=== PATIENT | female | born 1990 | race Caucasian/White ===

== ENCOUNTER 2019-07-06 15:47 | Observation (INO) | payer OTHER, SELFPAY ==
[2019-07-06 16:37] LABS: Add Urine Microscopic? NO; Appearance Urine Clear (Clear); Bilirubin Urine Negative (Negative); Blood Urine Negative (Negative); Color Urine Straw (Yellow); Glucose Urine UA Negative (Negative); Ketones Urine Negative (Negative); Leukocyte Esterase Ur Negative LEU/UL (Negative); Nitrate Urine Negative (Negative); Protein Urine Negative (Negative); Specific Grav Ur 1.014 (1.001-1.035); Urobilinogen Urine Negative mg/dL (<2.0)
[2019-07-06] MEDS: TERBUTALINE SULFATE 1 MG/ML VIAL 0.25 MG SUB-Q (16:58)
[2019-07-06 17:01] VITALS: BP 120/69; PULSE 103
[2019-07-06 17:15] VITALS: BP 121/62; PULSE 108
--- NOTE | 2019-07-06 17:39 | OBADM ---
This patient, Cristy Alvarado, admitted to the OB room OB Post 117 for observation. Patient/family oriented to hospital policies and general routines including ID bracelet, bed and alarms, visiting hours, pain management, procedures, bathroom and other care routines, personal items, smoking policy, room service/diet, and visiting hours. Patient/Family are encouraged to report perceived risks to care and to ask questions if they do not understand what they are told or what they should do.
--- NOTE | 2019-08-01 08:43 | PM.OBTRLD ---
OB - Triage/Final Diagnosis Evaluation Laboratory results: Laboratory Tests 07/06/19 16:26 Urine Color Straw Urine Appearance Clear Urine pH 6.0 Ur Specific [place] 1.014 Urine Protein Negative Urine Glucose (UA) Negative Urine Ketones Negative Ur Blood (Man) Negative Urine Nitrate Negative Urine Bilirubin Negative Urine Urobilinogen Negative Leukocyte Esterase Rfl Negative Final Diagnosis (1) Abdominal pain affecting : Code(s): O26.899 - Other specified related conditions, unspecified trimester; R10.9 - Unspecified abdominal pain Status: Acute
== END 2019-07-06 19:00 | disposition home or self-care (01) ==
PROVIDERS: Admitting Provider Obstetrics & Gynecology; Visit Provider Obstetrics & Gynecology
DX: O26.892 Other specified pregnancy related conditions, second trimester (principal); R10.9 Unspecified abdominal pain; Z3A.23 23 weeks gestation of pregnancy
CPT/HCPCS: 81003; 96372; G0378; G0379; J3105

== ENCOUNTER 2019-07-07 20:32 | Observation (INO) | payer OTHER, SELFPAY ==
[2019-07-07] VITALS (19 sets, daily range): BP systolic 118; BP diastolic 80; PULSE 87–117; O2SAT 98–100; BMI 23.8
[2019-07-07] MEDS: TERBUTALINE SULFATE 1 MG/ML VIAL 0.25 MG SUB-Q (22:18)
[2019-07-07 23:11] LABS: Fetal Fibronectin Negative
--- NOTE | 2019-08-01 08:42 | PM.OBTRLD ---
OB - Triage/Final Diagnosis Evaluation Laboratory results: Laboratory Tests 07/07/19 22:34 Fibronectin Negative Final Diagnosis (1) Abdominal pain affecting : Code(s): O26.899 - Other specified related conditions, unspecified trimester; R10.9 - Unspecified abdominal pain Status: Acute
== END 2019-07-08 00:11 | disposition home or self-care (01) ==
PROVIDERS: Admitting Provider Obstetrics & Gynecology; Visit Provider Obstetrics & Gynecology
DX: O26.892 Other specified pregnancy related conditions, second trimester (principal); Z3A.24 24 weeks gestation of pregnancy; R10.9 Unspecified abdominal pain
CPT/HCPCS: 82731; 96372; G0378; G0379; J3105

== ENCOUNTER 2019-07-20 09:45 | Outpatient (RCR) | payer OTHER, SELFPAY ==
[2019-07-20 10:52] VITALS: BP 90/55; PULSE 99
== END 2019-10-18 23:59 | disposition home or self-care (01) ==
LOC: ANHOBOP 09:45
PROVIDERS: Visit Provider Obstetrics & Gynecology
DX: O36.8120 Decreased fetal movements, second trimester, not applicable or unspecified (principal); Z3A.25 25 weeks gestation of pregnancy
CPT/HCPCS: 59025

== ENCOUNTER 2019-08-03 08:25 | Observation (INO) | payer OTHER, SELFPAY ==
--- NOTE | ~2019-08-03 | US_ITS ---
US OB limited, US OB transvaginal 08/03/2019 10:18 Indication: Vaginal spotting with Procedure: High-resolution Limited obstetrical ultrasound including transabdominal and transvaginal t echnique Comparison: No prior studies for comparison. Findings: There is a single living intrauterine in transverse presentation. heart rat e is 141 BPM. Fetus is in breech presentation. Placenta is anterior without previa. Amniotic fluid in dex is normal measuring 14.1 cm. Cervical length measures 3.75 cm without evidence for funneling. Impression: 1: Single living intrauterine in transverse presentation. 2: Normal YANELI measures 14.1 cm. 3: Cervical length is 3.75 cm. Reviewed, dictated and finalized at location B. L STUD FRAMER Impression: 1: Single living intrauterine in transverse presentation. 2: Normal YANELI measures 14.1 cm. 3: Cervical length is 3.75 cm. Impression: 1: Single living intrauterine in transverse presentation. 2: Normal YANELI measures 14.1 cm. 3: Cervical length is 3.75 cm.
[2019-08-03 08:45] VITALS: BP 121/69; PULSE 93
[2019-08-03 08:46] VITALS: BP 111/70; PULSE 99
[2019-08-03 09:00] VITALS: BP 108/67; PULSE 90
[2019-08-03 09:34] VITALS: TEMP 36.6
--- NOTE | 2019-08-03 10:41 | PM.OBTRLD ---
OB - Triage/Final Diagnosis Visit Information Date of evaluation: 08/03/19 Reason for evaluation: other (spotting) Evaluation Vital signs: Vital Signs - 24 hr 08/03/19 08:45 08/03/19 08:46 08/03/19 09:00 Pulse Rate 93 99 90 Blood Pressure 121/69 111/70 108/67
[2019-08-03] MEDS: TERBUTALINE SULFATE 1 MG/ML VIAL 0.25 MG SUB-Q (11:07)
--- NOTE | 2019-08-03 11:24 | OBADM ---
This patient, Cristy Alvarado, admitted to the OB room OB Post 116 for observation. Patient/family oriented to hospital policies and general routines including ID bracelet, bed and alarms, visiting hours, pain management, procedures, bathroom and other care routines, personal items, smoking policy, room service/diet, and visiting hours. Patient/Family are encouraged to report perceived risks to care and to ask questions if they do not understand what they are told or what they should do.
--- NOTE | 2019-08-03 12:24 | PC.NURSE ---
0915-Dr.Dalla Castro called,informed pt came in stating she had some spotting yesterday that was brown with some small clots and today when she uses the restroom she has a couple drips of brown-red blood. Nothing seen on patients vivian pad. Order received to send to US for placenta check and cervical length.
--- NOTE | 2019-08-03 12:35 | PC.NURSE ---
1055-Dr.Dalla Castro called with US results and informed pt is having very occassional contractions. One order of terbutaline received and discharge order.
--- NOTE | 2019-08-06 20:05 | PM.OBTRLD ---
OB - Triage/Final Diagnosis Visit Information Date of evaluation: 08/06/19 Reason for evaluation: threatened labor
== END 2019-08-03 12:05 | disposition home or self-care (01) ==
PROVIDERS: Admitting Provider Obstetrics & Gynecology; Visit Provider Obstetrics & Gynecology
DX: O26.852 Spotting complicating pregnancy, second trimester (principal); Z3A.27 27 weeks gestation of pregnancy
CPT/HCPCS: 76815; 76817; 96372; G0378; G0379; J3105

== ENCOUNTER 2019-08-06 17:39 | Observation (INO) | payer OTHER, SELFPAY ==
[2019-08-06] VITALS (12 sets, daily range): BP systolic 103–111; BP diastolic 64–72; PULSE 52–139; O2SAT 81–100
[2019-08-06] MEDS: TERBUTALINE SULFATE 1 MG/ML VIAL 0.25 MG SUB-Q (18:27)
--- NOTE | 2019-08-06 19:00 | PC.NURSE ---
pt states that pt was prescribed procardia prn for ctx, in office 2-3 weeks ago . pt states pt took medication a few times, though when pt took in the morning pt would feel light headed and dizzy at work. pt states pt occasionally takes procardia at night and is able to sleep through the night. pt states pt has not taken procardia in about 2 weeks.
[2019-08-06 19:20] LABS: Fetal Fibronectin Negative
--- NOTE | 2019-08-08 09:59 | PM.OBTRLD ---
OB - Triage/Final Diagnosis Visit Information Reason for evaluation: threatened labor Evaluation Laboratory results: Laboratory Tests 08/06/19 18:42 Fibronectin Negative
== END 2019-08-06 20:52 | disposition home or self-care (01) ==
PROVIDERS: Admitting Provider Obstetrics & Gynecology; Visit Provider Obstetrics & Gynecology
DX: O47.03 False labor before 37 completed weeks of gestation, third trimester (principal); Z3A.28 28 weeks gestation of pregnancy
CPT/HCPCS: 82731; 96372; G0378; G0379; J3105

== ENCOUNTER 2019-08-23 08:36 | Outpatient (RCR) | payer OTHER, SELFPAY ==
[2019-08-24] MEDS: RHO(D) IMMUNE GLOBULIN 300 MCG SYRINGE IM (11:02)
== END 2019-11-21 23:59 | disposition home or self-care (01) ==
LOC: ANHLAB 08:36
PROVIDERS: PCP Internal Medicine; Visit Provider Obstetrics & Gynecology
DX: Z29.13 Encounter for prophylactic Rho(D) immune globulin (principal); O36.0990 Maternal care for other rhesus isoimmunization, unspecified trimester, not applicable or unspecified; Z3A.00 Weeks of gestation of pregnancy not specified
CPT/HCPCS: 36415; 86900; 86901; 90384; 96372; J2790

== ENCOUNTER 2019-09-27 11:06 | Observation (INO) | payer OTHER, SELFPAY ==
[2019-09-27] VITALS (10 sets, daily range): BP systolic 106–127; BP diastolic 68–78; PULSE 83–122; RESP 18; TEMP 36.1–36.3; BMI 25.7
--- NOTE | ~2019-09-27 | US_ITS ---
US OB limited DATE: 09/27/2019 13:15 INDICATION: Abdominal/pelvic cramping. Measured YANELI. TECHNIQUE: Real-time imaging and Doppler analysis COMPARISON: 08/03/2019 obstetrical ultrasound Limited examination FINDINGS: Live campos intrauterine gestation, fetus in vertex presentation, longitudinal lie. heart rate 117 bpm Anterior placenta. Amniotic fluid index measures 16.1 cm, within normal limits. (5th percentile YANELI: 7.9 cm; 95th percen tile YANELI: 24.9 cm). IMPRESSION: Normal YANELI measurement of 16.1 cm Reviewed, dictated and finalized at Location A. Reviewed, dictated and finalized at location A.
--- NOTE | 2019-09-27 11:46 | OBADM ---
This patient, Cristy Alvarado, admitted to the OB room 117 at 1106 for observation for contractions. Patient/family oriented to hospital policies and general routines including ID bracelet, bed and alarms, visiting hours, pain management, procedures, bathroom and other care routines, personal items, smoking policy, room service/diet, and visiting hours. Patient/Family are encouraged to report perceived risks to care and to ask questions if they do not understand what they are told or what they should do.
--- NOTE | 2019-09-27 11:48 | PC.NURSE ---
PO fluid hydration started.
--- NOTE | 2019-09-27 12:13 | PC.NURSE ---
Pt has only drank 1/2 glass of water. Pt instructed to drink the remaining 1 1/2 glasses of water in the next 20 mins. Pt up to void.
--- NOTE | 2019-09-27 12:29 | PC.NURSE ---
Dr. Colton Castro returned page and informed of this pt's arrival at 35 2/7 wks gestation with c/o contractions that started last night but increased this morning. Pt received Celestone earlier in for contractions. MD informed of contractions, SVE- cervix was diffiucult to reach and watery red fluid was noted on exam glove. Tried collecting ROM plus, but didn't send as there was some pinkish fluid on applicator. Informed of reactive NST. Orders received for Brethine and an YANELI.
[2019-09-27 12:34] LABS: Add Urine Microscopic? YES; Appearance Urine Clear (Clear); Bacteria Urine Trace /hpf; Bilirubin Urine Negative (Negative); Blood Urine Negative (Negative); Color Urine Yellow (Yellow); Glucose Urine UA Negative (Negative); Ketones Urine Negative (Negative); Leukocyte Esterase Ur 2+ LEU/UL (Negative); Mucus Urine Few /lpf; Nitrate Urine Negative (Negative); Protein Urine Negative (Negative); Specific Grav Ur 1.017 (1.001-1.035); Squamous Epithelial Cell Urine Few /hpf (Few); Urobilinogen Urine Negative mg/dL (<2.0); WBC Urine 0-3 /hpf
[2019-09-27] MEDS: TERBUTALINE SULFATE 1 MG/ML VIAL 0.25 MG SUB-Q (12:43)
--- NOTE | 2019-09-27 12:56 | PM.OBTRLD ---
OB - Triage/Final Diagnosis Visit Information Date of evaluation: 09/27/19 Reason for evaluation: threatened labor Evaluation Laboratory results: Laboratory Tests 09/27/19 12:20 Urine Color Yellow Urine Appearance Clear Urine pH 6.0 Ur Specific [place] 1.017 Urine Protein Negative Urine Glucose (UA) Negative Urine Ketones Negative Ur Blood (Man) Negative Urine Nitrate Negative Urine Bilirubin Negative Urine Urobilinogen Negative Leukocyte Esterase Rfl 2+ H Urine WBC 0-3 Ur Squamous Epith Cells Few Urine Bacteria Trace Urine Mucus Few H Vital signs: Vital Signs - 24 hr 09/27/19 11:26 09/27/19 12:00 09/27/19 12:43 Pulse Rate 110 H 83 89 Blood Pressure 107/77 106/74 117/77
[2019-09-27] MEDS: NIFEdipine 10 MG CAPSULE PO (15:17)
== END 2019-09-27 16:54 | disposition home or self-care (01) ==
LOC: ANHOBPP 16:32 → ANHLDR 16:53
PROVIDERS: Admitting Provider Obstetrics & Gynecology; PCP Internal Medicine; Visit Provider Obstetrics & Gynecology
DX: O47.03 False labor before 37 completed weeks of gestation, third trimester (principal); Z3A.35 35 weeks gestation of pregnancy
CPT/HCPCS: 76815; 81001; 96372; A9270; G0378; G0379; J3105

== ENCOUNTER 2019-10-07 22:28 | Observation (INO) | payer OTHER, SELFPAY ==
--- NOTE | 2019-10-07 22:28 | OBADM ---
This patient, Cristy Alvarado, admitted to the OB room Labor/Delivery/Recovery 107 for observation. Patient/family oriented to hospital policies and general routines including ID bracelet, bed and alarms, visiting hours, pain management, procedures, bathroom and other care routines, personal items, smoking policy, room service/diet, and visiting hours. Patient/Family are encouraged to report perceived risks to care and to ask questions if they do not understand what they are told or what they should do.
[2019-10-07 22:38] VITALS: BMI 26.6
--- NOTE | 2019-10-08 00:06 | PC.NURSE ---
Dr. Chiang returned page. Updated Dr. Chiang on patient unchanged SVE 1.5/50/-2. Patient ginger 2-8 minutes, mild intensity palpated with soft abdomen between contractions. Patient reports decreased intensity of contractions since arrival to OB unit following PO hydration. FHT reactive category 1. VSS. Discharge orders received.
[2019-10-08 00:07] VITALS: BP 116/84; PULSE 90
--- NOTE | 2019-10-09 17:08 | PM.OBTRLD ---
OB - Triage/Final Diagnosis Visit Information Reason for evaluation: threatened labor
--- NOTE | 2019-10-10 06:35 | PM.OBTRLD ---
OB - Triage/Final Diagnosis Visit Information Reason for evaluation: threatened labor
== END 2019-10-08 00:29 | disposition home or self-care (01) ==
PROVIDERS: Admitting Provider Obstetrics & Gynecology; PCP Internal Medicine; Visit Provider Obstetrics & Gynecology
DX: O47.03 False labor before 37 completed weeks of gestation, third trimester (principal); Z3A.36 36 weeks gestation of pregnancy
CPT/HCPCS: 59025; G0378; G0379

== ENCOUNTER 2019-10-23 04:30 | Inpatient (IN) | payer OTHER, SELFPAY ==
[2019-10-23] VITALS (132 sets, daily range): BP systolic 110–154; BP diastolic 63–118; PULSE 63–115; RESP 16–18; TEMP 36.8–37.2; O2SAT 84–100; BMI 27.1
--- NOTE | 2019-10-23 04:48 | LDADM ---
This patient, Cristy Alvarado, was admitted to Labor/Delivery/Recovery 107 on 10/23/19 at 04:30. Plans for labor, pain management and were discussed with patient. Patient/family oriented to hospital policies and general routines including ID bracelet, bed and alarms, visiting hours, pain management, procedures, bathroom and other care routines, personal items, smoking policy, room service/diet and guest tray routines, security routines, and visiting hours. Patient/Family are encouraged to report perceived risks to care and to ask questions if they do not understand what they are told or what they should do. See OBIX for further documentation.
[2019-10-23] MEDS: LACTATED RINGERS 1,000 ML 125 ML IV CONT ×2 (05:02→06:47)
[2019-10-23 05:18] LABS: Basophils Absolute Auto 0.1 K/mm3 (0.0-0.1); Basophils Percent Auto 0.7 % (0.2-1.2); Eosinophils Absolute Auto 0.1 K/mm3 (0-0.3); Eosinophils Percent Auto 1.1 % (0-4.4); Hematocrit 32.2 % (37.0-47.0); Hemoglobin 10.4 g/dL (12.0-15.0); Immature Granulocyte Absolute 0.09 K/mm3 (0.00-0.031); Immature Granulocyte Percent A 0.9 % (0-0.5); Immature Platelet Fraction Pct 15.5 % (0.9-11.2); Lymphocytes Absolute Auto 3.48 K/mm3 (0.9-3.2); Lymphocytes Percent Auto 33.3 % (18.3-44.2); Mean Corpuscular HGB Conc 32.3 g/dl (32-36); Mean Corpuscular Volume 86.8 fl (80-100); Mean Platelet Volume 13.6 fl (7.4-10.4); Monocytes Absolute Auto 0.7 K/mm3 (0.1-0.6); Monocytes Percent Auto 7.1 % (2.6-8.5); Neutrophils Percent Auto 56.9 % (45.5-73.1); Nucleated Red Blood Cells Perc 0.2 % (0.0-0.2); Platelet Count Result 202 k/mm3 (150-375); Red Blood Count 3.71 M/mm3 (4.2-5.4); White Blood Count 10.5 K/mm3 (4.5-10.0)
[2019-10-23] MEDS: OXYTOCIN 30 UNITS/NS 500 ML 30 UNITS/500 ML BAG 6 UNITS IV CONT (05:26)
--- NOTE | 2019-10-23 06:19 | P.PNAN_ITS ---
Anes - Eval Pre Procedure Procedure: labor epidural Date/Time: 10/23/19 06:19 Surgeon: Saran Castellanos M.D. Preop Diagnosis: pain during labor Pre Op Diagnosis: Induction of Labor Patient Data Age: 28 Gender: F Height: 1.55 m Weight: 65 kg Last Vital Signs Pulse 90 10/23/19 06:16 BP 131/84 10/23/19 06:16 Allergies Allergy/AdvReac Type Severity Reaction Status Date / Time [facility] Allergy Rash Verified 07/06/19 16:57 Home Medications Medication Instructions Recorded Confirmed Type No Home Medications 10/23/19 10/23/19 History Laboratory Tests 10/23/19 10/23/19 10/23/19 05:04 05:04 05:04 WBC 10.5 K/mm3 H K/mm3 (4.5-10.0) RBC 3.71 M/mm3 L M/mm3 (4.2-5.4) Hgb 10.4 g/dL L g/dL (12.0-15.0) Hct 32.2 % L % (37.0-47.0) MCV 86.8 fl fl (80-100) MCH 28.0 pg pg (26-34) MCHC 32.3 g/dl g/dl (32-36) RDW 14.0 % % (11.5-14.5) Plt Count 202 k/mm3 k/mm3 (150-375) MPV 13.6 fl H fl (7.4-10.4) Immature Gran % (Auto) 0.9 % H % (0-0.5) Neut % (Auto) 56.9 % % (45.5-73.1) Lymph % (Auto) 33.3 % % (18.3-44.2) [place] % (Auto) 7.1 % % (2.6-8.5) Eos % (Auto) 1.1 % % (0-4.4) Baso % (Auto) 0.7 % % (0.2-1.2) Lymph # (Auto) 3.48 K/mm3 H K/mm3 (0.9-3.2) [place] # (Auto) 0.7 K/mm3 H K/mm3 (0.1-0.6) Eos # (Auto) 0.1 K/mm3 K/mm3 (0-0.3) Baso # (Auto) 0.1 K/mm3 K/mm3 (0.0-0.1) Abs Immat Gran (auto) 0.09 K/mm3 H K/mm3 (0.00-0.031) Absolute Neuts (auto) 6.0 K/mm3 K/mm3 (1.3-6.7) Absolute Nucleated RBC 0.0 K/mm3 K/mm3 (0.0-0.012) Nucleated RBC % 0.2 % % (0.0-0.2) % Immature Plt Fraction 15.5 % H % (0.9-11.2) RPR Pending Blood Type O Negative Antibody Screen Negative Patient hx anesthesia problems: none Family hx anesthesia problems: none [facility] Family History Family History (Updated 09/27/19 @ 13:28 by Kayleen Colon RN) Other No pertinent family history Social History Social History Smoking status: Never smoker Substance use: never Gender identity (if verbalized by the patient): Female Spiritual care concerns: No Exam Day of Procedure 10/23/19 06:19
--- NOTE | 2019-10-23 06:33 | PM.IMHP ---
H&P: HPI History of Present Illness Chief complaint: Induction of Labor Narrative: Cristy Alvarado is a 28 year old female whose last menstrual period was 01/23/2019, EDC is 10/30/2019, presents at 39 and half weeks gestation for induction of labor. Her has been uncomplicated, although she is on was on Lexapro in the past. She is negative for group B strep Review of Systems Review of Systems: All systems reviewed & are unremarkable except as noted in HPI and below PMFSH Family History Family History Other No pertinent family history Social History Social History Smoking status: Never smoker Substance use: never Gender identity (if verbalized by the patient): Female Spiritual care concerns: No Meds Home Medications and Allergies Home Medications Medication Instructions Recorded Confirmed Type No Home Medications 10/23/19 10/23/19 History Allergies Allergy/AdvReac Type Severity Reaction Status Date / Time [facility] [[facility] [place] Allergy Rash Verified 07/06/19 16:57 Vital Signs Vital Signs - 24 hr 10/23/19 04:56 10/23/19 05:01 10/23/19 05:16 Pulse Rate 107 H 90 85 Blood Pressure 131/98 H 127/100 H 135/94 H 10/23/19 05:31 10/23/19 05:46 10/23/19 06:01 Pulse Rate 81 81 78 Blood Pressure 138/95 H 130/95 H 144/89 H 10/23/19 06:16 10/23/19 06:31 Pulse Rate 90 81 Blood Pressure 131/84 147/84 H Exam Const: General: no acute distress Eyes: General: appearance normal, both eyes and all related structures Neck: Neck: supple and no JVD Thyroid: thyroid normal Resp: Effort & Inspection: normal respiratory effort Auscultation: clear to auscultation bilaterally Cardio: Rate: regular rate Rhythm: regular rhythm GI: Inspection: normal to inspection ( gravid soft uterus) Auscultation: normoactive bowel sounds : General: Yes other ( [place] 3/75/1. AROM clear. FHTs reassuring) Skin: General skin exam: no rashes or lesions noted Extrem: General: normal to inspection and no edema Psych: Mental Status: mental status grossly normal Affect: normal affect H&P: Results Labs Labs: Short CBC 10/23/19 Range/Units 05:04 WBC 10.5 H (4.5-10.0) K/mm3 Hgb 10.4 L (12.0-15.0) g/dL Hct 32.2 L (37.0-47.0) % Plt Count 202 (150-375) k/mm3 Assessment and Plan Additional Plan impression: Term Plan: Medical induction of labor. Spontaneous vaginal delivery expected. She has an epidural candidate
[2019-10-23 07:53] LABS: Rapid Plasma Reagin Non-Reactive (NonReactive)
--- NOTE | 2019-10-23 14:21 | P.PCNOB_ITS ---
OB - Delivery Note Procedure Delivery date: 10/23/19 events: Labor Induction Intrapartal events: None Induction method: AROM Delivery augmentation: pitocin Delivery monitor: external FHT Route of delivery: Episiotomy description: None Laceration description: Vaginal - 1st Degree Delivery repair: vicryl Specimen: No Estimated blood loss (mL): 57 Anesthesia type: Epidural Disposition: floor [place] Baby Date of : 10/23/19 Time of : 14:09 Weeks of gestation at delivery: 40 Infant gender: Female Weight (pounds): 7 Weight (ounces): 5 presentation: vertex position: Right Occiput Anterior Placenta delivery description: Spontaneous cord vessel description: 3 Vessels score one minute: 8 score five minutes: 9
[2019-10-23] MEDS: OXYTOCIN 30 UNITS/NS 500 ML 30 UNITS/500 ML BAG 125 UNITS IV CONT (14:45)
[2019-10-23] MEDS: IBUPROFEN 600 MG TABLET PO (17:05)
[2019-10-23] MEDS: DOCUSATE SODIUM 100 MG CAPSULE PO (17:06)
--- NOTE | 2019-10-23 17:44 | PC.NURSE ---
Addendum entered by Laura Holliday RN 10/23/19 17:44: Pt. transferred at 1646. Original Note: Patient transferred to post room #290 per wheelchair. Support person present. Oriented to unit, room, information board, rooming in, admission packet and security measures. Patient verbalizes understanding.
[2019-10-24] MEDS: ACETAMINOPHEN 325 MG TABLET 650 MG PO (04:36)
[2019-10-24 05:47] LABS: Hematocrit 30.7 % (37.0-47.0); Hemoglobin 9.6 g/dL (12.0-15.0)
--- NOTE | 2019-10-24 06:45 | PM.DS ---
DS: Admitting Diagnosis Admitting Diagnosis Admitting Diagnosis: term iup DS: Summary Time Spent with Patient Time attestation: Total time spent providing and/or coordinating discharge services: Exam Const: General: no acute distress Eyes: General: appearance normal, both eyes and all related structures Neck: Neck: supple and no JVD Thyroid: thyroid normal Resp: Effort & Inspection: normal respiratory effort Auscultation: clear to auscultation bilaterally Cardio: Rate: regular rate Rhythm: regular rhythm GI: Inspection: non-distended GI Palp: Yes Soft to palpation, No Tenderness to palpation present (GI) and No Guarding due to palpation present (GI) Auscultation: normal bowel sounds : General: Yes bladder normal to palpation External Female Exam: normal external appearance Speculum Exam - Vagina: normal vaginal discharge and No vaginal bleeding Speculum Exam - Cervix: nontender Bimanual exam- vagina & uterus: bladder normal to palpation and No Cervical tenderness present OB/external & speculum: No vaginal bleeding Skin: General skin exam: no rashes or lesions noted Extrem: General: normal to inspection and no edema Psych: Mental Status: mental status grossly normal Affect: normal affect DS: Data Data Completed and Pending Labs on day of discharge: Labs from last 24 hours 10/24/19 10/23/19 04:43 05:04 Hgb 9.6 L Hct 30.7 L RPR Non-reactive Discharge Plan Discharge Attending physician on discharge: Saran Hughes Discharging Clinician: Saran Hughes Patient Disposition: Home, Self-Care Activity: may shower, no straining, may drive after 2 weeks and pelvic rest Diet: heart healthy Patient Instructions: Antibiotic Form Stand Alone Forms: General Discharge Information Follow-up/Referrals: Saran Hughes MD [Physician] - Discharge Medications: Continued No Home Medications RF: 0 Date of admission: 10/23/19 04:30 Primary Care Provider: Nikita Frias Admitting Provider: Saran Hughes Attending physician on admission: Saran Hughes
--- NOTE | 2019-10-24 06:45 | PM.OBPNVD ---
OB - PN: Subj Subjective Date/time seen: 10/24/19 06:45 Patient comments: no complaints and pain well controlled baby status: doing well and nursing well OB - PN: Obj Data Labs CBC & Chem 7: 10/24/19 04:43 Labs: Laboratory Results - last 24 hr 10/23/19 10/24/19 05:04 04:43 Hgb 9.6 L Hct 30.7 L RPR Non-reactive OB - PN A/P Time Spent With Patient Time: Total time spent is greater than 50% in coordination of care (as documented) at patient's floor/unit and/or counseling patient: Review of Systems Review of Systems: All systems reviewed & are unremarkable except as noted in HPI and below Exam Const: General: no acute distress Eyes: General: appearance normal, both eyes and all related structures Neck: Neck: supple and no JVD Thyroid: thyroid normal Resp: Effort & Inspection: normal respiratory effort Auscultation: clear to auscultation bilaterally Cardio: Rate: regular rate Rhythm: regular rhythm GI: Inspection: non-distended GI Palp: Yes Soft to palpation, No Tenderness to palpation present (GI) and No Guarding due to palpation present (GI) Auscultation: normal bowel sounds : General: Yes bladder normal to palpation External Female Exam: normal external appearance Speculum Exam - Vagina: normal vaginal discharge and No vaginal bleeding Speculum Exam - Cervix: nontender Bimanual exam- vagina & uterus: bladder normal to palpation and No Cervical tenderness present OB/external & speculum: No vaginal bleeding Skin: General skin exam: no rashes or lesions noted Extrem: General: normal to inspection and no edema Psych: Mental Status: mental status grossly normal Affect: normal affect
[2019-10-24 07:20] VITALS: BP 119/85; PULSE 73; RESP 12; TEMP 36.9; O2SAT 97
[2019-10-24] MEDS: POLYSACCHARIDE IRON COMPLEX 150 MG CAPSULE PO ×2 (08:01→16:29)
[2019-10-24] MEDS: DOCUSATE SODIUM 100 MG CAPSULE PO ×2 (08:02→16:29)
[2019-10-24] MEDS: IBUPROFEN 600 MG TABLET PO ×2 (08:02→16:29)
[2019-10-24] MEDS: MULTIVIT/MIN/PREN/FOL AC/IRON TABLET 1 TAB PO (08:02)
--- NOTE | 2019-10-24 10:07 | WPDANLDPN2 ---
Anes-Prog Note L&D Date/Time: 10/24/19 10:07 Comfortable throughout: labor and delivery Neuraxial method: epidural Epidural/Spinal procedure site: clean & non-tender Neuro status: Neuro function grossly intact. Cardiovascular status: normal Respiratory status: normal Airway patency: baseline Mental status: baseline Post-Op hydration status: normal Vital Signs: Last Vital Signs Temp 36.9 C 10/24/19 07:20 Pulse 73 10/24/19 07:20 Resp 12 10/24/19 07:20 BP 119/85 10/24/19 07:20 Pulse Ox 97 10/24/19 07:20 I/O: Intake & Output 10/23/19 10/24/19 10/24/19 23:59 07:59 15:59 Output Total 1886 Balance -1886 Post-procedural complaints: none Patient feedback: Patient satisfied with anesthetic care.
[2019-10-24] MEDS: RHO(D) IMMUNE GLOBULIN 300 MCG SYRINGE IM (13:05)
[2019-10-25 09:18] VITALS: BP 117/77; PULSE 79; RESP 20; TEMP 36.6
== END 2019-10-24 16:36 | disposition home or self-care (01) | DRG 807 ==
LOC: ANHLDR 04:50 → ANHOB2 16:52
PROVIDERS: Admitting Provider Obstetrics & Gynecology; PCP Internal Medicine; Visit Provider Obstetrics & Gynecology
DX: O70.0 First degree perineal laceration during delivery (principal); Z37.0 Single live birth; Z3A.39 39 weeks gestation of pregnancy
CPT/HCPCS: 36415; 85014; 85018; 85025; 85055; 85461; 86592; 86850; 86900; 86901; 90384; A9270; J2590; J2790; J2795; J7120

== ENCOUNTER 2023-12-28 09:54 | Outpatient (RCR) | payer SELFPAY ==
--- NOTE | ~2023-12-28 | US_ITS ---
LIMITED OBSTETRIC ULTRASOUND/BIOPHYSICAL PROFILE Ordering provider: Saran Castro MD History: . Cervical length for contractions; Decreased FM . Comparison: None. FINDINGS: MATERNAL CERVIX: Not visualized. Measures 3.9 cm which is normal (normal is equal to or greater than 3.0 cm). PRESENTATION: Transverse lie with head on the maternal right. PLACENTAL LOCATION: Anterior. No previa. HEART RATE: 143 bpm (normal is between 110 to 160 bpm). AMNIOTIC FLUID INDEX: Normal with the Largest vertical pocket is 5.9 cm. OTHER: Maternal ovaries not visualized. SCORE: breathing movements: 2 movements: 2 tone: 2 Amniotic fluid volume: 2 Total: 8 IMPRESSION: Normal biophysical profile. Reviewed, dictated and finalized at location A. IMPRESSION: Normal biophysical profile.
[2023-12-28 11:08] VITALS: BP 102/66; PULSE 89
--- NOTE | 2023-12-28 11:54 | PM.OBTRLD ---
OB - Triage/Final Diagnosis Visit Information Date of evaluation: 12/28/23 Reason for evaluation: decreased movement and threatened labor Comments/Additional reasons for admission: I have assessed the risk for this patient, Cristy Díaz Christiano, and determined that she would benefit from observation care.
== END 2024-03-27 23:59 | disposition home or self-care (01) ==
LOC: ANHOBOP 09:54
PROVIDERS: PCP Internal Medicine; Visit Provider Obstetrics & Gynecology
DX: O36.8130 Decreased fetal movements, third trimester, not applicable or unspecified (principal); Z3A.28 28 weeks gestation of pregnancy
CPT/HCPCS: 59025; 76815; 76819

== ENCOUNTER 2023-12-31 10:55 | Outpatient (RCR) | payer BC, SELFPAY ==
[2024-01-01] MEDS: RHO(D) IMMUNE GLOBULIN 300 MCG/2 ML SYRINGE IM (09:54)
== END 2024-03-30 23:59 | disposition home or self-care (01) ==
LOC: ANHLAB 10:55
PROVIDERS: PCP Internal Medicine; Visit Provider Obstetrics & Gynecology
DX: Z29.13 Encounter for prophylactic Rho(D) immune globulin (principal); O36.0190 Maternal care for anti-D [Rh] antibodies, unspecified trimester, not applicable or unspecified; Z3A.00 Weeks of gestation of pregnancy not specified
CPT/HCPCS: 36415; 85461; 86850; 86900; 86901; 90384; 96372; J2790

== ENCOUNTER 2024-03-19 16:52 | Inpatient (IN) | payer BC, SELFPAY ==
[2024-03-19] VITALS (68 sets, daily range): BP systolic 109–144; BP diastolic 60–112; PULSE 77–233; TEMP 37.3–37.5; O2SAT 91–100; BMI 31.8
[2024-03-19 17:41] LABS: Basophils Absolute Auto 0.1 K/mm3 (0.0-0.1); Basophils Percent Auto 0.5 % (0.2-1.2); Eosinophils Absolute Auto 0.1 K/mm3 (0-0.3); Eosinophils Percent Auto 1.4 % (0-4.4); Hematocrit 31.1 % (37.0-47.0); Immature Granulocyte Absolute 0.07 K/mm3 (0.00-0.031); Immature Granulocyte Percent A 0.7 % (0-0.5); Lymphocytes Absolute Auto 2.46 K/mm3 (0.9-3.2); Lymphocytes Percent Auto 23.9 % (18.3-44.2); Mean Corpuscular HGB Conc 32.2 g/dl (32-36); Mean Corpuscular Hemoglobin 26.7 pg (26-34); Mean Corpuscular Volume 83.2 fl (80-100); Mean Platelet Volume 12.9 fl (7.4-10.4); Monocytes Absolute Auto 0.8 K/mm3 (0.1-0.6); Monocytes Percent Auto 7.5 % (2.6-8.5); Neutrophils Absolute Auto 6.8 K/mm3 (1.3-6.7); Platelet Count Result 190 k/mm3 (150-375); Red Blood Count 3.74 M/mm3 (4.2-5.4); Red Cell Distribution Width 14.4 % (11.5-14.5); White Blood Count 10.3 K/mm3 (4.5-10.0)
[2024-03-19] MEDS: DINOPROSTONE 10 MG VAG INSERT VAGINAL (17:50)
--- NOTE | 2024-03-19 17:51 | WPDANESEPP ---
Anes - Eval Pre Procedure Procedure: labor epidural Date/Time: 03/19/24 17:51 Surgeon: harjit Preop Diagnosis: pain during labor Pre Op Diagnosis: IOL Patient Data Age: 33 Gender: F Height: 1.55 m Weight: 76.3 kg Allergies Allergy/AdvReac Type Severity Reaction Status Date / Time cefaclor [From [facility]] Allergy Rash Verified 03/03/24 12:32 Home Medications Medication Instructions Recorded Confirmed Type No Home Medications 10/23/19 03/03/24 History Laboratory Tests 03/19/24 17:33 WBC 10.3 H K/mm3 (4.5-10.0) RBC 3.74 L M/mm3 (4.2-5.4) Hgb 10.0 L g/dL (12.0-15.0) Hct 31.1 L % (37.0-47.0) MCV 83.2 fl (80-100) MCH 26.7 pg (26-34) MCHC 32.2 g/dl (32-36) RDW 14.4 % (11.5-14.5) Plt Count 190 k/mm3 (150-375) MPV 12.9 H fl (7.4-10.4) Immature Gran % (Auto) 0.7 H % (0-0.5) Neut % (Auto) 66.0 % (45.5-73.1) Lymph % (Auto) 23.9 % (18.3-44.2) [place] % (Auto) 7.5 % (2.6-8.5) Eos % (Auto) 1.4 % (0-4.4) Baso % (Auto) 0.5 % (0.2-1.2) Lymph # (Auto) 2.46 K/mm3 (0.9-3.2) [place] # (Auto) 0.8 H K/mm3 (0.1-0.6) Eos # (Auto) 0.1 K/mm3 (0-0.3) Baso # (Auto) 0.1 K/mm3 (0.0-0.1) Abs Immat Gran (auto) 0.07 H K/mm3 (0.00-0.031) Absolute Neuts (auto) 6.8 H K/mm3 (1.3-6.7) Absolute Nucleated RBC 0.000 K/mm3 (0.0-0.012) Nucleated RBC % 0.0 % (0.0-0.2) RPR Pending HIV 1&2 Ab/P24 Ag 4thGn Pending Patient hx anesthesia problems: none Family hx anesthesia problems: none Results Review: All pre-operative results and documents have been reviewed as part of the pre-operative evaluation. [facility] Past Medical History Medical History (Updated 03/19/24 @ 17:52 by Brenda Galaviz CRNA) IUP (intrauterine ), incidental Obesity (BMI 30.0-34.9) Family History Family History Other No pertinent family history Social History Social History Smoking status: Never smoker Substance use: never Gender identity (if verbalized by the patient): Female Spiritual care concerns: No Exam Day of Procedure 03/19/24 17:51
--- NOTE | 2024-03-19 17:55 | LDADM ---
This patient, Cristy Alvarado, was admitted to Labor/Delivery/Recovery 103 on 03/19/24 at 16:52. Plans for labor, pain management and were discussed with patient. Patient/family oriented to hospital policies and general routines including ID bracelet, bed and alarms, visiting hours, pain management, procedures, bathroom and other care routines, personal items, smoking policy, room service/diet and guest tray routines, security routines, and visiting hours. Patient/Family are encouraged to report perceived risks to care and to ask questions if they do not understand what they are told or what they should do. See OBIX for further documentation.
[2024-03-19 18:34] LABS: HIV 1/2 Ab P24 Ag Result Negative (Negative)
[2024-03-19] MEDS: LACTATED RINGERS 1,000 ML 125 ML IV CONT (20:05)
[2024-03-19 21:26] LABS: Rapid Plasma Reagin Non-Reactive (NonReactive)
[2024-03-19] MEDS: ONDANSETRON INJ 4 MG/2 ML VIAL IV PUSH (21:57)
[2024-03-20] VITALS (8 sets, daily range): BP systolic 111–128; BP diastolic 54–83; PULSE 72–103; RESP 16–18; TEMP 36.2–37.1; O2SAT 98–100
--- NOTE | 2024-03-20 00:10 | PM.OBPRVD ---
OB - Vaginal Delivery Note Procedure Delivery date: 03/20/24 Events: Elective Induction of Labor Induction method: Per Cervidil Protocol Delivery monitor: External FHT and External Uterine Route of delivery: Episiotomy description: None Laceration Description: Perineal - 1st Degree Delivery repair: vicryl Specimen: No Quantitative Blood Loss (ml): 61 Anesthesia type: Epidural Disposition: Floor Complications: No immediate complications Narrative: The patient was admitted for Cervidil induction she medial labia ginger and quickly changed to3.5cm from 1. This was removed she spontaneously ruptured and went to completely dilated she pushed delivered head spontaneously in the NATALYA position. Nuchal cord checked noted be loose x1 referral occiput anterior posterior shoulder delivered spontaneously. Cord clamped 2 and cut infant passed off the table given Apgars of 9 [id number] 9 [id number]. Cord blood was drawn. Placenta delivered intact spontaneously. 20units of Pitocin placed IV to help firm the uterus. After inspecting the vagina 1st degree midline was noted and a [id number] was placed with the 0 Vicryl blood loss was 61cc. All sponge, needle, instrument counts were correct. There were no immediate complications Baby Date of : 03/19/24 Time of : 23:56 Gestational Age by Date: 40 gender: Female presentation: vertex position: Right Occiput Anterior Placenta delivery description: Spontaneous Cord Vessel Description: 3 Vessels, Nuchal Cord ( x2), Loose and Reduced score one minute: 9 score five minutes: 9
[2024-03-20] MEDS: OXYTOCIN 30 UNITS/NS 500 ML 30 UNITS/500 ML BAG 999 UNITS IV CONT (00:11)
--- NOTE | 2024-03-20 00:14 | PM.IMHP ---
H&P: HPI History of Present Illness Date/Time: 03/20/24 00:14 Chief Complaint: term Narrative: this is a 33-year-old 2 para 1 who presents at 40 weeks gestation for induction of labor. She has early ultrasound confirming dates. The has been uncomplicated PMFSH Past Medical History Medical History IUP (intrauterine ), incidental Obesity (BMI 30.0-34.9) Family History Family History Other No pertinent family history Social History Social History Smoking status: Never smoker Second hand tobacco smoke exposure: No Substance use: never Do You Feel Safe in your Home?: Yes Lack of Transportation: No Lack of Food: Never True Current Housing: I Have Housing Concerned About Future Housing: No Difficulty Paying Gas/Electric Bills: No Difficulty Paying for Meds: No Currently Unemployed: No Education: High School Diploma/GED Difficulty w/ Childcare or Family Care: No Gender identity (if verbalized by the patient): Female Spiritual care concerns: No Meds Home Medications and Allergies Home Medications Medication Instructions Recorded Confirmed Type No Home Medications 10/23/19 03/03/24 History Allergies Allergy/AdvReac Type Severity Reaction Status Date / Time [facility] Allergy Rash Verified 03/03/24 12:32 Vital Signs Vital Signs - 24 hr 03/19/24 17:55 03/19/24 18:00 03/19/24 18:30 Temperature 99.2 F Pulse Rate 80 85 81 Blood Pressure 127/82 130/86 130/87 Pulse Oximetry 03/19/24 19:00 03/19/24 19:30 03/19/24 20:35 Temperature Pulse Rate 88 85 233 H Blood Pressure 131/84 137/85 116/70 Pulse Oximetry 03/19/24 20:41 03/19/24 20:43 03/19/24 20:46 Temperature Pulse Rate 90 Blood Pressure 119/86 Pulse Oximetry 100 100 03/19/24 20:49 03/19/24 20:50 03/19/24 20:51 Temperature Pulse Rate 82 97 Blood Pressure 121/65 124/71 Pulse Oximetry 100 10/21/24 20:53 03/19/24 20:55 03/19/24 20:56 Temperature Pulse Rate 97 112 H Blood Pressure 109/75 109/62 121/79 Pulse Oximetry 99 03/19/24 20:58 03/19/24 21:00 03/19/24 21:01 Temperature Pulse Rate 189 H 97 Blood Pressure 128/64 133/77 Pulse Oximetry 100 03/19/24 21:03 03/19/24 21:05 03/19/24 21:06 Temperature Pulse Rate 95 77 Blood Pressure 122/63 126/88 Pulse Oximetry 100 03/19/24 21:08 03/19/24 21:10 03/19/24 21:11 Temperature Pulse Rate 90 86 Blood Pressure 129/72 133/69 Pulse Oximetry 100 03/19/24 21:14 03/19/24 21:16 03/19/24 21:18 Temperature Pulse Rate 95 84 93 Blood Pressure 126/71 131/72 134/78 Pulse Oximetry 100 03/19/24 21:21 03/19/24 21:26 03/19/24 21:30 Temperature Pulse Rate 80 89 Blood Pressure 119/67 129/69 Pulse Oximetry 100 100 03/19/24 21:31 03/19/24 21:36 03/19/24 21:41 Temperature Pulse Rate Blood Pressure Pulse Oximetry 100 100 100 03/19/24 21:46 03/19/24 21:51 03/19/24 21:55 Temperature Pulse Rate Blood Pressure Pulse Oximetry 100 100 100 03/19/24 22:00 03/19/24 22:03 03/19/24 22:06 Temperature Pulse Rate 90 Blood Pressure 131/75 Pulse Oximetry 99 100 91 03/19/24 22:07 03/19/24 22:08 03/19/24 22:13 Temperature Pulse Rate 95 Blood Pressure 138/88 Pulse Oximetry 96 98 99 03/19/24 22:15 03/19/24 22:16 03/19/24 22:18 Temperature Pulse Rate 114 H 102 H 98 Blood Pressure 126/112 H 116/88 126/66 Pulse Oximetry 98 03/19/24 22:20 03/19/24 22:23 03/19/24 22:25 Temperature Pulse Rate 94 113 H 103 H Blood Pressure 136/64 131/77 134/69 Pulse Oximetry 99 03/19/24 22:28 03/19/24 22:30 03/19/24 22:33 Temperature Pulse Rate 95 99 97 Blood Pressure 132/76 137/85 143/80 H Pulse Oximet
[2024-03-20] MEDS: ACETAMINOPHEN 325 MG TABLET 650 MG PO ×4 (00:15→23:35)
[2024-03-20] MEDS: IBUPROFEN 600 MG TABLET PO ×4 (00:15→23:35)
--- NOTE | 2024-03-20 00:16 | P.DS_ITS ---
DS: Admitting Diagnosis Discharge Date 03/21/2024 Admitting Diagnosis Term DS: Discharge Diagnosis Discharge Diagnosis (1) IUP (intrauterine ), incidental: Code(s): Z33.1 - state, incidental Status: Acute DS: Summary Hospital Course Reason for hospitalization: patient was admitted for induction of labor on the afternoon of 03/19/2024. She rapidly went to complete and delivered with an epidural anesthesia vaginally. Hospital Course: Patient's hospital course unremarkable. She remained afebrile. She was up, voiding without difficulty, eating regular diet, ambulating, and generally without complaints. Time Spent with Patient Time attestation: Total time spent providing and/or coordinating discharge services: Exam Const: General: cooperative, healthy appearing and comfortable Nutritional Appearance: average body habitus Orientation/consciousness: oriented to person, oriented to place and oriented to time HENMT: Head: normal to inspection Resp: Effort & Inspection: normal respiratory effort Cardio: Rate: regular rate Rhythm: regular rhythm Heart sounds: S1 normal heart sound present and S2 normal heart sound present GI: Inspection: normal to inspection ( Fundus firm below the umbilicus) DS: Data Data Completed and Pending Labs on day of discharge: Labs from last 24 hours 03/19/24 17:33 WBC 10.3 H RBC 3.74 L Hgb 10.0 L Hct 31.1 L MCV 83.2 MCH 26.7 MCHC 32.2 RDW 14.4 Plt Count 190 MPV 12.9 H Immature Gran % (Auto) 0.7 H Neut % (Auto) 66.0 Lymph % (Auto) 23.9 [place] % (Auto) 7.5 Eos % (Auto) 1.4 Baso % (Auto) 0.5 Lymph # (Auto) 2.46 [place] # (Auto) 0.8 H Eos # (Auto) 0.1 Baso # (Auto) 0.1 Abs Immat Gran (auto) 0.07 H Absolute Neuts (auto) 6.8 H Absolute Nucleated RBC 0.000 Nucleated RBC % 0.0 RPR Non-reactive HIV 1&2 Ab/P24 Ag 4thGn Negative Blood Type O Negative Antibody Screen Negative Discharge Plan Discharge Attending physician on discharge: Saran Mcdowell Discharging Clinician: Saran Mcdowell Patient Disposition: Home, Self-Care Activity: may shower, no straining and pelvic rest Diet: heart healthy Wound Care Instructions: follow printed instructions Patient Instructions: Antibiotic Form Stand Alone Forms: General Discharge Information Follow-up/Referrals: Saran Mcdowell MD [Physician] - Discharge Medications: No Action No Home Medications Date of admission: 03/19/24 16:52 Primary Care Provider: Nikita Frias Admitting Provider: Saran Mcdowell Attending physician on admission: Saran Mcdowell Condition: Stable
[2024-03-20] MEDS: OXYTOCIN 30 UNITS/NS 500 ML 30 UNITS/500 ML BAG 125 UNITS IV CONT (00:33)
--- NOTE | 2024-03-20 02:27 | PC.NURSE ---
Patient transferred to post room #292 via wheelchair. Support person present. Oriented to unit, room, information board, rooming in, admission packet and security measures. Patient verbalizes understanding.
[2024-03-20] MEDS: WITCH HAZEL 40 PADS 1 PAD TOPICAL ×2 (03:01→16:09)
[2024-03-20] MEDS: BENZOCAINE 20% AER SPR (*SP) 56 GM CAN 1 SPRAY TOPICAL (03:01)
--- NOTE | 2024-03-20 06:55 | PM.OBPNVD ---
OB - PN: Subj Subjective Date/time seen: 03/20/24 06:55 Patient comments: no complaints and pain well controlled baby status: doing well OB - PN: Obj Data Labs 03/19/24 17:33 Labs: Laboratory Results - last 24 hr 03/19/24 17:33 WBC 10.3 H RBC 3.74 L Hgb 10.0 L Hct 31.1 L MCV 83.2 MCH 26.7 MCHC 32.2 RDW 14.4 Plt Count 190 MPV 12.9 H Immature Gran % (Auto) 0.7 H Neut % (Auto) 66.0 Lymph % (Auto) 23.9 [place] % (Auto) 7.5 Eos % (Auto) 1.4 Baso % (Auto) 0.5 Lymph # (Auto) 2.46 [place] # (Auto) 0.8 H Eos # (Auto) 0.1 Baso # (Auto) 0.1 Abs Immat Gran (auto) 0.07 H Absolute Neuts (auto) 6.8 H Absolute Nucleated RBC 0.000 Nucleated RBC % 0.0 RPR Non-reactive HIV 1&2 Ab/P24 Ag 4thGn Negative Blood Type O Negative Antibody Screen Negative OB - PN A/P Plan day: 1 Plan: routine care Time Spent With Patient Time: Total time spent is greater than 50% in coordination of care (as documented) at patient's floor/unit and/or counseling patient: Time with patient: less than 15 minutes Exam Const: General: cooperative, healthy appearing and comfortable Nutritional Appearance: average body habitus Orientation/consciousness: oriented to person, oriented to place and oriented to time HENMT: Head: normal to inspection Resp: Effort & Inspection: normal respiratory effort Cardio: Rate: regular rate Rhythm: regular rhythm Heart sounds: S1 normal heart sound present and S2 normal heart sound present GI: Inspection: normal to inspection
[2024-03-20] MEDS: DOCUSATE SODIUM 100 MG CAPSULE PO ×2 (09:44→16:10)
[2024-03-20] MEDS: POLYSACCHARIDE IRON COMPLEX 150 MG CAPSULE PO ×2 (09:44→16:10)
--- NOTE | 2024-03-20 17:44 | WPDANLDPN2 ---
Anes-Prog Note L&D Date/Time: 03/20/24 17:44 Neuro status: Neuro function grossly intact. Cardiovascular status: normal Respiratory status: normal Airway patency: baseline Mental status: baseline Post-Op hydration status: normal Vital Signs: Last Vital Signs Temp 36.4 C L 03/20/24 12:44 Pulse 72 03/20/24 12:44 Resp 18 03/20/24 12:44 BP 111/71 03/20/24 12:44 Pulse Ox 98 03/20/24 12:44 O2 Del Method Room Air 03/20/24 16:26 Pain score (VAS): 0 I/O: Intake & Output 03/20/24 03/20/24 03/20/24 07:59 15:59 23:59 Intake Total 500 Output Total 50 Balance -50 500 Post-procedural complaints: none Patient feedback: Patient satisfied with anesthetic care.
[2024-03-21 03:58] LABS: Hematocrit 29.4 % (37.0-47.0); Hemoglobin 9.3 g/dL (12.0-15.0)
[2024-03-21 08:11] VITALS: BP 106/69; PULSE 75; RESP 15; TEMP 36.4; O2SAT 99
--- NOTE | 2024-03-21 08:24 | PC.NURSE ---
On 03/21/24, the student, Deedee Waggoner, provided care and completed [facility] documentation on this patient. I have reviewed the student's documentation and agree with the findings.
[2024-03-21] MEDS: RHO(D) IMMUNE GLOBULIN 300 MCG/2 ML SYRINGE IM (09:07)
[2024-03-21] MEDS: POLYSACCHARIDE IRON COMPLEX 150 MG CAPSULE PO (10:02)
[2024-03-21] MEDS: DOCUSATE SODIUM 100 MG CAPSULE PO (10:03)
[2024-03-22 11:20] VITALS: BP 122/77; PULSE 84; RESP 18; TEMP 36.8; O2SAT 97
== END 2024-03-21 10:45 | disposition home or self-care (01) | DRG 807 ==
LOC: ANHLDR 03-20 00:18 → ANHOB2 03-20 02:27
PROVIDERS: Admitting Provider Obstetrics & Gynecology; PCP Internal Medicine; Visit Provider Obstetrics & Gynecology
DX: O70.0 First degree perineal laceration during delivery (principal); Z37.0 Single live birth; O69.81X0 Labor and delivery complicated by cord around neck, without compression, not applicable or unspecified; O99.214 Obesity complicating childbirth; Z3A.40 40 weeks gestation of pregnancy
CPT/HCPCS: 36415; 85014; 85018; 85025; 85461; 86592; 86703; 86850; 86900; 86901; 90384; A9270; G0432; J2405; J2590; J2790; J2795; J7120